=== PATIENT | female | born 1970 | race Two or more races ===

== ENCOUNTER 2017-04-09 18:24 | Emergency (ER) | payer MEDICAID ==
[~2017-04-09] VITALS: Ht 157.5 cm; Wt 68.0 kg
[2017-04-09] MEDS ORDERED: GLIPIZIDE5 MG ORAL (18:29)
[2017-04-09] MEDS ORDERED: LOSARTAN POTASS50 MG ORAL (18:29)
[2017-04-09] MEDS ORDERED: METFORMIN HCL1000 M1 ORAL (18:29)
[2017-04-09] MEDS ORDERED: ZANTAC150 MG ORAL (18:29)
[2017-04-09] MEDS ORDERED: Metoclopramide 10mg/2ml Inj IVP ONE (18:30)
[2017-04-09 18:59] LABS: BASOPHILS % (AUTO) 0.8 % (0.0-2.0); EOSINOPHILS % (AUTO) 1.8 % (0.0-3.0); LYMPHOCYTES % (AUTO) 34.2 % (20.0-45.0); MEAN CORPUSCULAR HEMOGLOBIN 22.9 PG (27.0-31.0); MEAN CORPUSCULAR HGB CONC 30.6 G/DL (32.0-36.0); MEAN CORPUSCULAR VOLUME 75 FL (80-99); MEAN PLATELET VOLUME 8.4 FL (6.5-10.1); MONOCYTES % (AUTO) 6.3 % (1.0-10.0); NEUTROPHILS % (AUTO) 56.8 % (45.0-75.0); PLATELET COUNT 231 K/UL (150-450); RED BLOOD COUNT 5.34 M/UL (4.20-5.40)
[2017-04-09 19:04] LABS: ANION GAP 9 mmol/L (5-15); CALCIUM 8.9 MG/DL (8.5-10.1); CARBON DIOXIDE 24 MMOL/L (21-32); CHLORIDE 101 MMOL/L (98-107); CREATININE 1.1 MG/DL (0.55-1.30); GLOMERULAR FILTRATION RATE 53.5 mL/min (>60); POTASSIUM 4.1 MMOL/L (3.5-5.1); SODIUM 134 MMOL/L (136-145)
[2017-04-09 19:09] LABS: ALANINE AMINOTRANSFERASE 77 U/L (12-78); ALBUMIN/GLOBULIN RATIO 0.7 (1.0-2.7); ASPARTATE AMINO TRANSFERASE 141 U/L (15-37); TOTAL PROTEIN 7.3 G/DL (6.4-8.2)
--- NOTE | 2017-04-09 19:14 | Emergency Room Report ---
History of Present Illness General Chief Complaint: Headache Source: EMS Present Illness HPI 47-year-old female presents to the emergency department complaining of elevated blood sugar in addition to intermittent nausea and 6/10 in severity generalized headache times one week. Patient states that recently her blood sugar has not been controllable by her usual oral medications which are metformin and glipizide. Patient states she attempted to make an appointment with her primary care provider however the next available appointment is not in total April 13. Patient denies vomiting, fevers, chills, changes in mentation. Patient reports having dry mouth she denies constipation or diarrhea. She states that her blood pressure have been relatively normal she also has a history of high blood pressure and gastritis. Pt. reports not having an at home glucose monitor. Denies vomiting, new medications, recent illness or changes in medications. denies muscle or extremity weakness, slurred speech, or trauma/ fall. Denies CP, Palpitations, LOC, AMS, dizziness, Changes in Vision, Sensation, paresthesias, or a sudden severe headache. Allergies: Coded Allergies: No Known Allergies (Unverified , 04/09/17) Patient History Past Medical History: see triage record Past Surgical History: none Pertinent Family History: none Last Menstrual Period: 03/16/17 Now: No Reviewed Nursing Documentation: PMH: Agreed, PSxH: Agreed Nursing Documentation-PMH Hx Hypertension: Yes Hx Diabetes: Yes Review of Systems All Other Systems: negative except mentioned in HPI Physical Exam Vital Signs Date Time Temp Pulse Resp B/P (MAP) Pulse Ox O2 Delivery O2 Flow Rate FiO2 04/09/17 18:17 97.2 75 16 159/99 98 Room Air Sp02 EP Interpretation: reviewed, normal General Appearance: no apparent distress, alert, GCS 15, non-toxic Head: normocephalic, atraumatic Eyes: bilateral eye normal inspection, bilateral eye PERRL ENT: hearing grossly normal, normal voice Neck: full range of motion Respiratory: lungs clear, normal breath sounds, speaking full sentences Cardiovascular #1: regular rate, rhythm, normal capillary refill Gastrointestinal: normal bowel sounds, non tender, soft, non-distended Musculoskeletal: back normal, gait/station normal, normal range of motion, non- tender Neurologic: alert, oriented x3, responsive, motor strength/tone normal, sensory intact, normal gait, speech normal, no pronator, other - equal cardiovascular invasive specialist strength, negative figueroa's Skin: normal color, no rash, warm/dry, well hydrated Medical Decision Making PA Attestation Dr. lew is my supervising Physician whom patient management has been discussed with. Diagnostic Impression: Primary Impression: Headache Qualified Codes: R51 - Headache Additional Impression: Elevated glucose level ER Course 47-year-old female presents to the emergency department complaining of elevated blood sugar in addition to intermittent nausea and 6/10 in severity generalized headache times one week. Patient states that recently her blood sugar has not been controllable by her usual oral medications which are metformin and glipizide. Patient states she attempted to make an appointment with her primary care provider however the next available appointment is not in total April 13. Patient denies vomiting, fevers, chills, changes in mentation. Patient reports having dry mouth she denies constipation or diarrhea. She states that her blood pressure have been relatively normal she also has a history of high blood pressure and gastritis. Pt. reports not having an at home glucose monitor. Denies vomiting, new medications, recent illness or changes in medications. denies muscle or extremity weakness, slurred speech, or trauma/ fall. Denies CP, Palpitations, LOC, AMS, dizziness, Changes in Vision, Sensation, paresthesias, or a sudden severe headache. Ddx considered but are not limited to migraine, SAH, Psedudo motor Cerebri, Mass lesion, Cluster ORELLANA, Tension ORELLANA, Post lumbar puncture ORELLANA, DKA, HONK, hyperglycemia, Vital signs: are WNL, pt. is afebrile H&PE are most consistent with hyperglycemia with ORELLANA and absence of neurological deficit ORDERS: - CMP: elevated glucose of 366, and elevated alk phos and AST. - CBC: unremarkable -UA: negative for proteins, positive for glucose, no indication of infection at this time. ED INTERVENTIONS: - Reglan IV - 1.5 Liters NS bolus repeat Accu-check pt. glucose is 266. Pt. states her ORELLANA has completely resolved in addition to nausea. -I do not suspect an emergent condition at this time. With current presentation , pt. is stable for close outpatient follow up and conservative treatment with medication adjustments at her PMD appt that is in 4 days. Encouraged continued hydration, and to continue previously prescribed medications. D/w pt. to return promptly to ED with worsening or new symptoms.- Pt. (and or responsible democrat) verbalizes' understanding and agreement with proposed treatment plan. DISCHARGE: At this time pt. is stable for d/c to home. Will provide printed patient care instructions, and any necessary prescriptions. Care plan and follow up instructions have been discussed with the patient prior to discharge. Labs Test 04/09/17 18:40 04/09/17 19:14 White Blood Count 7.0 K/UL (4.8-10.8) Red Blood Count 5.34 M/UL (4.20-5.40) Hemoglobin 12.2 G/DL (12.0-16.0) Hematocrit 40.0 % (37.0-47.0) Mean Corpuscular Volume 75 FL (80-99) Mean Corpuscular Hemoglobin 22.9 PG (27.0-31.0) Mean Corpuscular Hemoglobin Concent 30.6 G/DL (32.0-36.0) Red Cell Distribution Width 16.0 % (11.6-14.8) Platelet Count 231 K/UL (150-450) Mean Platelet Volume 8.4 FL (6.5-10.1) Neutrophils (%) (Auto) 56.8 % (45.0-75.0) Lymphocytes (%) (Auto) 34.2 % (20.0-45.0) Monocytes (%) (Auto) 6.3 % (1.0-10.0) Eosinophils (%) (Auto) 1.8 % (0.0-3.0) Basophils (%) (Auto) 0.8 % (0.0-2.0) Sodium Level 134 MMOL/L (136-145) Potassium Level 4.1 MMOL/L (3.5-5.1) Chloride Level 101 MMOL/L (98-107) Carbon Dioxide Level 24 MMOL/L (21-32) Anion Gap 9 mmol/L (5-15) Blood Urea Nitrogen 12 mg/dL (7-18) Creatinine 1.1 MG/DL (0.55-1.30) Estimat Glomerular Filtration Rate 53.5 mL/min (>60) Glucose Level 336 MG/DL (74-106) Calcium Level 8.9 MG/DL (8.5-10.1) Total Bilirubin 0.2 MG/DL (0.2-1.0) Aspartate Amino Transf (AST/SGOT) 141 U/L (15-37) Alanine Aminotransferase (ALT/SGPT) 77 U/L (12-78) Alkaline Phosphatase 124 U/L (46-116) Total Protein 7.3 G/DL (6.4-8.2) Albumin 3.0 G/DL (3.4-5.0) Globulin 4.3 g/dL Albumin/Globulin Ratio 0.7 (1.0-2.7) Urine Color Pale yellow Urine Appearance Clear Urine pH 7 (4.5-8.0) Urine Specific [place] 1.010 (1.005-1.035) Urine Protein Negative (NEGATIVE) Urine Glucose (UA) 4+ (NEGATIVE) Urine Ketones Negative (NEGATIVE) Urine Occult Blood 1+ (NEGATIVE) Urine Nitrite Negative (NEGATIVE) Urine Bilirubin Negative (NEGATIVE) Urine Urobilinogen Normal MG/DL (0.0-1.0) Urine Leukocyte Esterase 3+ (NEGATIVE) Urine RBC 0-2 /HPF (0 - 2) Urine WBC 2-4 /HPF (0 - 2) Urine Squamous Epithelial Cells Few /LPF (NONE/OCC) Urine Bacteria Few /HPF (NONE) Last Vital Signs Date Time Temp Pulse Resp B/P (MAP) Pulse Ox O2 Delivery O2 Flow Rate FiO2 04/09/17 18:17 97.2 75 16 159/99 98 Room Air Disposition: HOME, SELF-CARE Condition: Stable Scripts Blood-Glucose Meter (BLOOD GLUCOSE MONITORING) 1 Each Kit EACH for Hyperglycemia, #1 Prov: Johanna Lowe 04/09/17 Metoclopramide Hcl* (REGLAN*) 10 Mg Tablet 10 MG ORAL PRN Y for For Headache, #6 TAB Prov: Johanna Lowe 04/09/17 Patient Instructions: Blood Glucose Monitoring, Adult, General Headache Without Cause, [id number] Additional Instructions: Take previously prescribed medications as directed. Follow up with a Primary Care Provider in 3-5 days, even if your symptoms have resolved. --Please review list of primary care clinics, if you do not already have a primary care provider Return sooner to ED if new symptoms occur, or current symptoms become worse. - Please note that this Emergency Department Report was dictated using [employer] asst technology software, occasionally this can lead to erroneous entry secondary to interpretation by the dictation equipment. Johanna Lowe Apr 09, 2017 19:14
[2017-04-09] MEDS ORDERED: Sodium Chloride 500ML 500 ML IV ONE (20:00)
[2017-04-09 20:06] LABS: APPEARANCE,URINE CLEAR; KETONES,URINE NEGATIVE (NEGATIVE); LEUKOCYTE ESTERASE ,URINE 3+ (NEGATIVE); NITRITE,URINE NEGATIVE (NEGATIVE); PH,URINE 7 (4.5-8.0); PROTEIN,URINE NEGATIVE (NEGATIVE); UROBILINOGEN,URINE NORMAL MG/DL (0.0-1.0)
[2017-04-09 20:12] LABS: BACTERIA,URINE FEW /HPF; RBC,URINE 0-2 /HPF (0 - 2); SQUAMOUS EPITHELIAL CELL,UR FEW /LPF (NONE/OCC)
[2017-04-09] MEDS ORDERED: REGLAN10 MG ORAL (20:40)
[2017-04-09 20:41] VITALS: BP 138/85
[2017-04-09] MEDS ORDERED: BLOOD GLUCOSE1 EAC5 MC (20:41)
[2017-04-09 20:51] VITALS: BP 138/85
== END 2017-04-09 20:51 | disposition home or self-care (01) ==
LOC: EDBD 18:24 → EMR 18:59
DX: R51 Headache (principal); E11.65 Type 2 diabetes mellitus with hyperglycemia; I10 Essential (primary) hypertension
CPT/HCPCS: 36415; 80053; 81003; 82962; 85025; 96361; 96374; 99284; J2765; J7040